=== PATIENT | female | born 2000 | race Caucasian/White ===

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

== ENCOUNTER 2021-01-14 19:24 | Emergency (ER) | payer OTHER ==
[2018-02-01 16:45] VITALS: BP 120/69
[~2021-01-14 19:24] MED LIST changes: -GADOTERATE 7.5 MMOL/15ML VIAL. IVP ONE; +IBUP-1815 PO; -IBUP100O25 PO
== END 2021-01-14 22:39 | disposition left against medical advice (07) ==
LOC: ER 19:24
DX: L03.039 Cellulitis of unspecified toe (principal); Z53.21 Procedure and treatment not carried out due to patient leaving prior to being seen by health care provider